=== PATIENT | female | born 1960 | race Caucasian/White ===

== ENCOUNTER 2019-07-19 07:12 | Day surgery (SDC) | payer MEDICARE, MEDICAID ==
[~2019-07-19] VITALS: Ht 149.9 cm; Wt 42.2 kg
[~2019-07-19 07:12] MED LIST: BREO1INH INH; BUPIVACAINE HCL 0.5% 10 ML VIAL As Ordered ONE; BUPIVACAINE HCL 0.5% 30 ML VIAL As Ordered ONE; DULO60CA35 PO; FAMO20TA PO; LIDOCAINE 1% SDV INJ 30 ML VIAL As Ordered ONE; LR 1,000 ML IV ONE; RANI150T PO; VENTAER INH; ceFAZolin SOD 2 GM in IV 1 EA IV ONE; dexameTHASONE 4 MG/ML 1ML VIAL (J1100) As Ordered ONE
[2019-07-19] MEDS ORDERED: LIDOCAINE 2% INJ 100 MG/5 ML SDV (FOR ANES.) As Ordered ONE (07:14)
[2019-07-19] MEDS ORDERED: PROPOFOL 200 MG/20 ML VIAL As Ordered ONE (07:14)
[2019-07-19] MEDS ORDERED: fentaNYL 100 MCG/2 ML INJECTION (J3010) As Ordered ONE ×2 (07:15→10:00)
[2019-07-19] MEDS ORDERED: MIDAZOLAM INJ 2 MG/2 ML VIAL (J2250) As Ordered ONE (07:15)
[2019-07-19] MEDS ORDERED: dexameTHASONE 4 MG/ML 1ML VIAL (J1100) As Ordered ONE (09:03)
[2019-07-19] MEDS ORDERED: ONDANSETRON 4MG/2ML VIAL (J2405) As Ordered ONE (09:03)
[2019-07-19] MEDS ORDERED: KETOROLAC 60 MG/2 ML VIAL (J1885) As Ordered ONE (09:03)
[2019-07-19] MEDS ORDERED: ePHEDrine SULFATE 25 MG/5 ML(5MG/ML) SYRINGE As Ordered ONE (09:04)
[2019-07-19] MEDS ORDERED: HYDR-3713 PO (11:37)
[2019-07-19] MEDS ORDERED: LR 1,000 ML IV SCH (12:00)
[2019-07-19] MEDS ORDERED: METOCLOPRAMIDE INJ 10MG/2ML VIAL (J2765) IV PRN (12:00)
[2019-07-19] MEDS ORDERED: fentaNYL 100 MCG/2 ML INJECTION (J3010) IV PRN (12:00)
[2019-07-19] MEDS ORDERED: PERCOCET 5MG/325MG TAB PO PRN (12:00)
[2019-07-19] MEDS ORDERED: ONDANSETRON 4MG/2ML VIAL (J2405) IV PRN (12:00)
--- NOTE | 2019-07-19 12:48 | RO ---
DATE OF SURGERY: 07/19/2019 PREOPERATIVE DIAGNOSES: Right foot bunion hallux valgus, tailor's bunion, second metatarsal deformity and hammertoes 2, 3 and 4. POSTOPERATIVE DIAGNOSES: Right foot bunion hallux valgus, tailor's bunion, second metatarsal deformity and hammertoes 2, 3 and 4. PROCEDURE: Right foot lapidis bunionectomy with Rashid osteotomy, second metatarsal shortening osteotomy, tailor's bunion with 5th metatarsal osteotomy and hammertoe correction toes 2, 3 and 4. SURGEON: Garry Winslow DPM HOME [employer]PLIANCES MECHANIC: None. ANESTHESIA: General laryngeal mask airway (LMA) with preoperative injection of 20 mL of 1:1 mixture of 1% lidocaine plain and 0.5% Marcaine plain. ESTIMATED BLOOD LOSS: 15 mL. MATERIALS: Arthrex 4 mm low profile screw, Arthrex lapidis plate with 3.5 mm locking screws, Arthrex 2.5 headless compression screws, 3.4 Guidewire and 4.5 K-wire, as well as Arthrex DynaNite flavio, #3-0 and #4-0 Vicryl, and #4-0 nylon. INJECTABLES: 1 mL of Decadron 4 mg/mL. COMPLICATIONS: None. CONDITION: Stable. Fadumo Orona is a 58-year-old female who presents to [facility] with complaints of painful toes. She has severe bunion deformity and hammertoes and tailor's bunion resulting in significant pain. She presents today for surgical correction. The patient's side and site were identified and marked in the preoperative holding area. Consent was reviewed and obtained. All risks, complications and alternatives to the procedure were explained to the patient in detail, and all questions were answered. PROCEDURE: The patient was brought to the operating room and placed on the operating room table in supine position. General LMA anesthesia was delivered by the anesthesia team. Preoperative injection of 20 mL of 1:1 mixture of 1% lidocaine plain and 0.5% Marcaine plain were injected into the right foot. The right foot was prepped and draped in a normal sterile fashion. Tourniquet was applied to the right ankle and inflated to 215 mmHg. A dorsal incision was first made over the 1st metatarsal and hallux. This was carried through with a #15 blade. Dissection was carried down to the first metatarsal phalangeal joint and T capsulotomy was performed exposing the metatarsal head. Following this, a lateral release was performed releasing the adductor tendon lateral capsule and a McGlamry elevator was used to release the plantar structures. Attention was then paid to the 1st metatarsal cuneiform joint and a linear capsulotomy was performed exposing the joint. The cartilage was removed from the metatarsal perpendicular to the linear axis of the bone and a wedge was taken up from the cartilage of the medial cuneiform with wedge base lateral. This effectively placed the metatarsal in a more rectus alignment reducing the intermetatarsal angle visualized with C-arm. Fixation was performed using Arthrex 4.0 cannulated screw and Arthrex low profile plate using three 3.5 mm locking screws. Attention was then paid distally. The medial eminence of the 1st metatarsal head was resected and following this an osteotomy was performed in the proximal phalanx of the hallux, removing a wedge medially placing the toe in a more rectus position, reducing the valgus deformity. This was fixated with an Arthrex DynaNite staple. Attention was then paid to the 2nd toe and metatarsal. Dorsal incision was made over the 2nd toe and metatarsal head with a #15 blade. Dissection was carried first to the metatarsal phalangeal joint. Linear capsulotomy was performed exposing the metatarsal head. The collateral ligaments were released and McGlamry elevator was used to release the plantar structures. Following this, an osteotomy was performed in the second metatarsal head transposing it proximally. This was fixated with a Arthrex 2.5 headless compression screw. The remaining bone ledge was resected with a rongeur. Attention was then paid to the 2nd proximal interphalangeal joint. At this time, incision was made over the 3rd and 4th toes and extensor tenotomy was performed at the proximal interphalangeal joints. On toes 2, 3 and 4 the head of the proximal phalanx was resected with a sagittal saw and the base cartilage of the middle phalanx was removed with sagittal saw. Each toe was then corrected using a 4.5 K-wire thrown from the distal toe into the metatarsal head. Following this, attention was paid to the 5th metatarsal head. A linear incision was made over the 5th metatarsal and a linear capsulotomy was performed exposing the metatarsal head. An osteotomy was performed in the metatarsal head transposing it proximally and dorsally as well as medially. This was initially fixated with an Arthrex 2.5 headless compression screw, however a good bony purchase was not made due to the soft nature of the bones, so two additional Guidewires were thrown across the osteotomy site. These were cut, trimmed and left in place. The remaining bone ledge was removed with a rongeur. Sites were irrigated with normal saline. Capsular repair on each incision was repaired with #3-0 Vicryl and the extensor tendons were repaired with #3-0 Vicryl. The tourniquet was then deflated. Subcutaneous closure was performed with #4-0 Vicryl and the skin closed with #4-0 nylon. 1 mL of Decadron was injected. Sterile dressings were applied. The patient was brought to the postanesthesia care unit (PACU) with vital signs stable and neurovascular status intact. She will be non-weightbearing to the right foot. She will followup in the office in two days. ANNELISE
[2019-07-19] MEDS ORDERED: LACTATED RINGER'S 500 ML IV ONE (13:30)
[2019-07-19 16:40] VITALS: BP 98/50
== END 2019-07-19 16:50 | disposition home or self-care (01) ==
LOC: M SDC 07:12
PROVIDERS: ATTEND Podiatrist Foot & Ankle Surgery
DX: M20.11 Hallux valgus (acquired), right foot (principal); M21.611 Bunion of right foot; M20.41 Other hammer toe(s) (acquired), right foot; M21.6X1 Other acquired deformities of right foot; K21.9 Gastro-esophageal reflux disease without esophagitis; J44.9 Chronic obstructive pulmonary disease, unspecified; F17.218 Nicotine dependence, cigarettes, with other nicotine-induced disorders; Z88.8 Allergy status to other drugs, medicaments and biological substances; F32.9 Major depressive disorder, single episode, unspecified
CPT/HCPCS: 28110; 28285; 28297; 28298; 28308; 76000; 88300; 97116; C1713; J0690; J1100; J1885; J2250; J2405; J3010